=== PATIENT | male | born 1945 | race Caucasian/White ===

== ENCOUNTER 2016-12-18 02:06 | Emergency (ER) | payer MEDICARE ==
--- OUTSIDE RECORDS SUMMARY | 2016-12-18 02:09 | XMS | Clinical Summary ---
:1945 Author Organization [facility] Address [address] [place] [address] Phone Care Team Providers Name Role Phone Nikolas Pratt Primary Care Provider tel Allergies No Known Allergies Current Medications Prescription Sig. Disp. Refills Start Date End Date Status finasteride (PROSCAR) 5 mg Take 5 mg by mouth Active tablet daily. tamsulosin (FLOMAX) 0.4 mg Take 0.4 mg by Active capsule,extended release mouth daily. 24hr calcitriol (ROCALTROL) 0.5 Take 0.5 mcg by Active MCG capsule mouth daily. Active Problems Problem Noted Date BPH (benign prostatic hypertrophy) with urinary obstruction 10/07/2016 CKD (chronic kidney disease) stage 3, GFR 30-59 ml/min 10/06/2016 BPH with obstruction/lower urinary tract symptoms 10/06/2016 Chronic hyponatremia 10/06/2016 Encounters Date Type Specialty Care Team Description 10/08/2016 Documentation Urology Chung Daniels MD 10/07/2016 - Hospital Encounter General Internal Jerem[facility], BPH with urinary 10/08/2016 Medicine kellee Kingston MD 10/07/2016 Procedure Pass Urology 10/07/2016 Surgery Urology [facility] CYSTOSCOPY, WITH Chung Banegas PHOTOSELECTIVE VAPORIZATION OF PROSTATE, USING LASER (GREENLIGHT) 09/10/2016 Anesthesia Event Urology Hamilton Clarke APRN from Last 3 Months Social History Tobacco Use Types Packs/Day Years Used Date Never Smoker Smokeless Tobacco: Never Used Alcohol Use Drinks/Week oz/Week Comments Yes 1 DRINK EVERY OTHER MONTH, RARE Sex Assigned at Date Recorded Not on file Last Filed Vital Signs Vital Sign Reading Time Taken Blood Pressure 112/56 10/08/2016 1:13 PM CDT Pulse 85 10/08/2016 1:13 PM CDT Temperature 36.4 C (97.6 F) 10/08/2016 1:13 PM CDT Respiratory Rate 20 10/08/2016 1:13 PM CDT Oxygen Saturation 98% 10/08/2016 1:13 PM CDT Inhaled Oxygen Concentration - - Weight 56.9 kg (125 lb 8 oz) 10/07/2016 7:28 AM CDT Height 180.3 cm (5' 11") 10/07/2016 7:28 AM CDT Body Mass Index 17.5 10/07/2016 7:28 AM CDT Plan of Treatment Health Maintenance Due Date Last Done Comments COLONOSCOPY 1993 ZOSTER VACCINE 2003 PNEUMOCOCCAL POLYSACCHARIDE VACCINE AGE 65 AND OVER 2008 PNEUMOCOCCAL-13 2008 INFLUENZA VACCINE 10/26/2016 Procedures Procedure Name Priority Date/Time Associated Diagnosis Comments ANESTHESIA INTUBATION Routine 10/07/2016 8:50 AM CDT Procedure Note - Leny Velazquez CRNA - 10/07/2016 8:50 AM CDT Airway Date/Time: 10/07/2016 8:42 AM Performed by: LENY VELAZQUEZ Authorized by: DORIAN TEJADA Location: OR Resident/HOME SCHOOL COORDINATOR: LENY VELAZQUEZ Preoxygenated with 100% O2: Yes C-spine Precautions Maintained Throughout: Yes Final Airway Type: Supraglottic airway Final LMA: Classic LMA Size: 5 Number of Attempts at Approach: 1 EZ LMA no problems teeth protected and unchanged CYSTOSCOPY, WITH 10/07/2016 8:00 AM CDT BPH with urinary PHOTOSELECTIVE VAPORIZATION OF obstruction PROSTATE, USING LASER (GREENLIGHT) Case Notes POSSIBLE EXTENDED STAY Special Needs POSSIBLE EXTENDED STAY from Last 3 Months Results Urinalysis screen and microscopy, with reflex to culture (10/08/2016 1:07 PM) Component Value Ref Range Specimen site Clean catch Color, UA Red Appearance, UA Hazy Specific gravity, UA 1.014 1.001 - 1.035 pH, UA 6.0 5.0 - 8.5 Protein, UA 3+(A) Negative Glucose, UA Negative Negative Ketones, UA Negative Negative Bilirubin, UA Negative Negative Blood, UA Large(A) Negative Nitrite, UA Negative Negative Urobilinogen, UA <2.0 <2.0 Leukocyte esterase, UA Moderate(A) Negative WBC, UA >180(H) 0 - 1 /HPF RBC, UA >180(H) 0 - 1 /HPF Bacteria, UA Few None seen Yeast, UA None seen Yeast with pseudohyphae, UA None seen Specimen Performing Laboratory Urine [facility] DEPARTMENT OF PATHOLOGY AND [address] [id number] Gram stain (10/08/2016 1:03 PM) Component Value Ref Range Gram stain result No WBC's or organisms seen. Comment: Specimen Information Specimen Source: Urine Specimen Site: See UA Specimen Performing Laboratory Urine [facility] DEPARTMENT OF PATHOLOGY AND [address] [address] Urine culture (10/08/2016 1:03 PM) Component Value Ref Range Urine culture isolate No growth after 2 days. Comment: Specimen Information Specimen Source: Urine Specimen Site: See UA Specimen Performing Laboratory Urine [facility] OF PATHOLOGY [address] [address] Estimated GFR (10/08/2016 4:00 AM) Component Value Ref Range GFR Non Af Amer 29(A) mL/min/1.73 m2 GFR Af Amer 36(A) mL/min/1.73 m2 Comment: Chronic kidney disease: <60 mL/min/1.73m2 Kidney failure: <15 mL/min/1.73m2 The estimated GFR is calculated from the IDMS-traceable Modification of Diet in Renal Disease Equation. The accuracy of the calculation is poor when the creatinine is normal. Calculated values >90 mL/min/1.73m2 are not reported. This equation has not been validated in children (<18 years), women, the elderly (>70 years), or ethnic groups other than Caucasians and Americans. Specimen Performing Laboratory Plasma specimen [facility] DEPARTMENT OF PATHOLOGY AND [address] [address] Basic metabolic panel (10/08/2016 4:00 AM) Component Value Ref Range Sodium 134(L) 135 - 148 mEq/L Potassium 4.3 3.5 - 5.0 mEq/L Chloride 98 98 - 112 mEq/L CO2 26 24 - 31 mEq/L Anion gap 10 7 - 15 mEq/L Comment: Starting from June , anion gap calculation no longer incorporates potassium. Please note the change. BUN 32(H) 8 - 23 mg/dL Creatinine 2.2(H) 0.7 - 1.2 mg/dL Glucose 134(H) 65 - 99 mg/dL Calcium 8.9 8.8 - 10.2 mg/dL Specimen Performing Laboratory Plasma specimen [facility] DEPARTMENT OF PATHOLOGY AND [place] [id number] Surgical pathology request (10/07/2016 11:01 AM) Component Value Ref Range Surgical pathology report See link below for PDF Lab Report Specimen Performing Laboratory [facility] DEPARTMENT OF PATHOLOGY AND [address] [address] Electrolytes (Chem4) (10/07/2016 10:21 AM) Component Value Ref Range Sodium 136 135 - 148 mEq/L Potassium 4.6 3.5 - 5.0 mEq/L Chloride 97(L) 98 - 112 mEq/L CO2 25 24 - 31 mEq/L Anion gap 14 7 - 15 mEq/L Comment: Starting from June , anion gap calculation no longer incorporates potassium. Please note the change. Specimen Performing Laboratory Plasma specimen [facility] AND [facility] [address] [place] [id number] POC glucose (10/07/2016 10:14 AM) Component Value Ref Range POC glucose 146(H) 65 - 99 mg/dL Comment: [facility] Notified RN Meter ID: [id number] Construction Project Manager: Austin Castellon Specimen Performing Laboratory [facility] [address] [address] Estimated GFR (10/07/2016 7:48 AM) Component Value Ref Range GFR Non Af Amer 33(A) mL/min/1.73 m2 GFR Af Amer 40(A) mL/min/1.73 m2 Comment: Chronic kidney disease: <60 mL/min/1.73m2 Kidney failure: <15 mL/min/1.73m2 The estimated GFR is calculated from the IDMS-traceable Modification of Diet in Renal Disease Equation. The accuracy of the calculation is poor when the creatinine is normal. Calculated values >90 mL/min/1.73m2 are not reported. This equation has not been validated in children (<18 years), women, the elderly (>70 years), or ethnic groups other than Caucasians and Americans. Specimen Performing Laboratory Blood [facility] OF PATHOLOGY AND [facility] [address] [place] [address] I-Stat chemistry panel (10/07/2016 7:48 AM) Component Value Ref Range POC sodium 135Comment:Testing performed on the ISTAT instrument 135 - 148 mEq /L by RN [id number]. POC potassium 5.2(H) 3.5 - 5.0 mEq/L POC chloride 98(L) 99 - 109 mEq/L POC CO2 31 24 - 31 mEq/L POC glucose 118(H) 65 - 99 mg/dL POC BUN 39(H) 8 - 24 mg/dL POC creatinine 2.0(H) 0.7 - 1.2 mg/dl POC hematocrit 42 41 - 51 % Specimen Performing Laboratory Blood [facility] DEPARTMENT OF PATHOLOGY AND GENOMIC MEDICINE [address] [place] [address] from Last 3 Months Insurance Payer Benefit Plan / Group Subscriber ID Type Phone Address [employer] [id number] O [phone] [place] [address]
[2016-12-18 03:00] LABS: Bilirubin Negative (Negative); Blood, Urine Negative (Negative); Glucose, Urine (Dipstick) Negative (Negative); Ketone, Urine Negative (Negative); Nitrite Positive (Negative); Protein, Urine (Dipstick) Negative (Neg-Trace); Urobilinogen 0.2 mg/dL (0.2-1.0)
[2016-12-18 03:07] LABS: Hyaline Casts/LPF 0-3 HYALINE CAST LPF (0-3 Hyaline); RBC/HPF 0-3 HPF (0-3); Squamous Epithelial None Seen HPF (0-3)
[2016-12-18 03:14] LABS: Bacteria/HPF Rare-Few HPF (None Seen)
[2016-12-18 05:37] LABS: POC Est. GFR-MDRD-African-Amer 36 (2-60); POC Estimated GFR-MDRD 30 (2-60)
== END 2016-12-18 06:45 | disposition home or self-care (01) ==
LOC: ERS 02:06
DX: N39.0 Urinary tract infection, site not specified (principal); I10 Essential (primary) hypertension; Z79.899 Other long term (current) drug therapy
CPT/HCPCS: 81003; 81015; 82565; 87086; 99283